=== PATIENT | female | born 1985 | race Caucasian/White ===

== ENCOUNTER 2018-01-26 15:31 | Emergency (ER) | payer MEDICAID ==
[~2018-01-26 15:31] MED LIST: ALBU8.5H8 IH; ALPR-624 PO; CYCL-1 PO; GUAI120015 PO; IBUP-1984 PO; NAPR-1154 PO; NITR100C6 PO; ONDA4TAB6 PO; PANT20TA3 PO; PSEU-259 PO
== END 2018-01-26 20:43 | disposition left against medical advice (07) ==
LOC: ER 15:31
DX: Z76.0 Encounter for issue of repeat prescription (principal); Z53.21 Procedure and treatment not carried out due to patient leaving prior to being seen by health care provider

== ENCOUNTER 2018-09-10 11:21 | Emergency (ER) | payer MEDICAID ==
[~2018-09-10] VITALS: Ht 154.9 cm; Wt 41.8 kg
[2018-09-10] MEDS ORDERED: amoxicillin 250mg capsule PO ONE (12:45)
[2018-09-10] MEDS ORDERED: AMOX500C2 PO (12:45)
[2018-09-10] MEDS ORDERED: HYDROcodone/acetaminophen 5mg/325mg tablet PO ONE (12:45)
[2018-09-10] MEDS ORDERED: aspirin 325mg tablet PO ONE (12:45)
[2018-09-10] MEDS ORDERED: acetaminophen 325mg tablet PO ONE (12:45)
[2018-09-10 13:03] VITALS: BP 148/76
== END 2018-09-10 13:06 | disposition home or self-care (01) ==
LOC: ER 11:21
DX: K08.89 Other specified disorders of teeth and supporting structures (principal); G89.29 Other chronic pain; Z90.49 Acquired absence of other specified parts of digestive tract; Z90.710 Acquired absence of both cervix and uterus; Z98.51 Tubal ligation status; Z88.8 Allergy status to other drugs, medicaments and biological substances; Z79.2 Long term (current) use of antibiotics; Z79.899 Other long term (current) drug therapy
CPT/HCPCS: 99284

== ENCOUNTER 2021-05-30 11:43 | Emergency (ER) | payer MEDICAID ==
[~2021-05-30] VITALS: Ht 154.9 cm; Wt 84.0 kg
[~2021-05-30 11:43] MED LIST changes: +ALBU8.5H17 IH; -ALBU8.5H8 IH; +PANT20TA18 PO; -PANT20TA3 PO
[2021-05-30] MEDS ORDERED: ketorolac tromethamine 15mg/ml inj. IM ONE (13:05)
[2021-05-30] MEDS ORDERED: acetaminophen 325mg tablet PO ONE (13:05)
[2021-05-30] MEDS ORDERED: LIDOcaine 1% W/epiNEPHrine 1:200,000 10ml vial IJ ONE (13:05)
[2021-05-30] MEDS ORDERED: SULF1TAB45 PO (13:16)
[2021-05-30 15:15] VITALS: BP 140/65
== END 2021-05-30 15:17 | disposition home or self-care (01) ==
LOC: ER 11:43
DX: L02.415 Cutaneous abscess of right lower limb (principal); F41.9 Anxiety disorder, unspecified; Z87.440 Personal history of urinary (tract) infections; G89.29 Other chronic pain; M54.9 Dorsalgia, unspecified; Z88.8 Allergy status to other drugs, medicaments and biological substances
CPT/HCPCS: 10060; 96372; 99283; J1885

== ENCOUNTER 2022-03-04 11:46 | Emergency (ER) | payer MEDICAID ==
[~2022-03-04] VITALS: Ht 154.9 cm; Wt 41.8 kg
[2022-03-04] MEDS ORDERED: methylPREDNISolone sod succ 125mg/2ml vial IV ONE (12:05)
[2022-03-04] MEDS ORDERED: ondansetron/PF 4mg/2ml inj IV ONE (12:05)
[2022-03-04] MEDS ORDERED: morphine 4 MG/ML inj SYRINge IV ONE ×2 (12:05→14:45)
[2022-03-04] MEDS ORDERED: clindamycin 600mg/D5W 50ml 50 ML IV ONE (12:05)
[2022-03-04] MEDS ORDERED: iohexol 300 MG/1 ML 50ml polymer ONE (12:47)
[2022-03-04] MEDS ORDERED: IOHEXOL 300 MG/ML 30ML INFUS..BTL IV ONE (12:48)
[2022-03-04 12:54] LABS: BASOPHILS % (AUTO) 0.2 % (0-1); EOSINOPHILS # (AUTO) 0.1 X10'3 (0-0.9); EOSINOPHILS % (AUTO) 0.4 % (0-6); HEMATOCRIT 46.7 % (35.0-45.0); HEMOGLOBIN 15.8 g/dl (12.0-16.0); LYMPHOCYTES # (AUTO) 1.6 X10'3 (1.1-4.8); LYMPHOCYTES % (AUTO) 10.7 % (21-51); MEAN CORPUSCULAR HEMOGLOBIN 28.5 PG (27.0-31.0); MEAN CORPUSCULAR HGB CONC 33.8 g/dL (33.0-36.5); MEAN CORPUSCULAR VOLUME 84.4 FL (78-98); MEAN PLATELET VOLUME 6.6 FL (7.4-10.4); MONOCYTES # (AUTO) 1.5 X10'3 (0-0.9); MONOCYTES % (AUTO) 9.9 % (2-12); NEUTROPHILS # (AUTO) 11.8 X10'3 (1.8-7.7); NEUTROPHILS % (AUTO) 78.8 % (42-75); PLATELET COUNT 448 X10'3 (140-440); RED BLOOD COUNT 5.54 X10'6 (4.20-5.60); RED CELL DISTRIBUTION WIDTH 13.7 % (11.5-14.5)
[2022-03-04] MEDS ORDERED: normal saline 1000ml 1,000 ML IVB ONE (13:00)
[2022-03-04 13:10] LABS: ALANINE AMINOTRANSFERASE 202 U/L (12-78); ALBUMIN 3.4 G/DL (3.4-5.0); ALBUMIN/GLOBULIN RATIO 0.7 (1.1-1.5); ALKALINE PHOSPHATASE 136 IU/L (46-116); ANION GAP 9 (8-16); ASPARTATE AMINO TRANSFERASE 60 U/L (10-37); BILIRUBIN,TOTAL 1.3 MG/DL (0.1-1.0); BLOOD UREA NITROGEN 10 MG/DL (7-18); BUN/CREATININE RATIO 14.1 (6.6-38.0); CALCIUM 8.8 MG/DL (8.5-10.1); CHLORIDE 99 MMOL/L (99-107); CREATININE 0.71 MG/DL (0.40-0.90); GLUCOSE 110 MG/DL (70-104); SODIUM 134 MMOL/L (135-145); TOTAL CARBON DIOXIDE 25.9 MMOL/L (24-32); TOTAL PROTEIN 8.3 G/DL (6.4-8.2); eGFR > 90 ML/MIN
[2022-03-04] MEDS ORDERED: LORazepam 2 mg/ml vial IV ONE (14:45)
[2022-03-04] MEDS ORDERED: vancomycin/NS 1 GM ADD-VANTAGE 250 ML IV ONE (14:50)
[2022-03-04] MEDS ORDERED: clindamycin 300mg/D5W 50mL 50 ML IV ONE (20:40)
[2022-03-05] MEDS ORDERED: normal saline 1000ml 1,000 ML IV ONE (00:05)
[2022-03-05] MEDS ORDERED: morphine 4 MG/ML inj SYRINge IV ONE ×3 (03:30→14:15)
[2022-03-05] MEDS ORDERED: clindamycin 600mg/D5W 50ml 50 ML IV ONE ×2 (04:05→22:50)
--- NOTE | 2022-03-05 08:44 | NUR ---
pt is requesting for pain meds .as per dr mari he will order pain meds.
[2022-03-05] MEDS ORDERED: clindamycin 600mg/D5W 50ml 50 ML IV SCH ×2 (10:00→16:00)
--- NOTE | 2022-03-05 10:25 | NUR ---
waiting for clinidamycin from pharmacy.
--- NOTE | 2022-03-05 12:33 | NUR ---
PT IS IN PAIN BUT DOES NOT WANT TO TAKE ANY PAIN MEDS AT THIS TIME ,PT STTAED WAIT UNTILL IT GETS WORSE.
[2022-03-05] MEDS ORDERED: ketorolac trometh. 30mg/ml inj. IV ONE (16:45)
[2022-03-05] MEDS ORDERED: acetaminophen 325mg tablet PO ONE ×2 (16:45→23:10)
[2022-03-05] MEDS ORDERED: HYDROcodone/acetaminophen 5mg/325mg tablet PO ONE ×2 (16:45→23:10)
[2022-03-05] MEDS ORDERED: methylPREDNISolone sod succ 125mg/2ml vial IV ONE (23:10)
--- NOTE | 2022-03-06 07:25 | NUR ---
Requested routine med orders and PRN pain med to ED MD Thompson.
[2022-03-06] MEDS ORDERED: dexamethasone 4mg/ml inj IV SCH (08:00)
[2022-03-06] MEDS ORDERED: dexamethasone inj 10 MG in dextrose 5%-water 100 ML IV SCH (08:00)
[2022-03-06] MEDS ORDERED: DEXAMETHASONE IV SCH (08:00)
[2022-03-06] MEDS ORDERED: NORMAL SALINE IV SCH (08:00)
[2022-03-06] MEDS: clindamycin 600mg/D5W 50ml 50 ML IV SCH ×2 (08:15→14:15)
[2022-03-06] MEDS: HYDROcodone/acetaminophen 10/325mg tab PO PRN ×2 (08:16→14:15)
[2022-03-06] MEDS ORDERED: LORazepam 1 MG tablet PO ONE (09:15)
--- NOTE | 2022-03-06 09:45 | NUR ---
Received VO from Dr. Thompson for diet order and med ativan per pt request.
--- NOTE | 2022-03-06 10:42 | NUR ---
@ AROUND 10AM [facility] ACCEPTED PT STILL LOOKING FOR A BED
--- NOTE | 2022-03-06 10:42 | NUR ---
Pt updated on hospital status and awaiting bed opening.
[2022-03-06 14:21] VITALS: BP 105/73
[2022-03-06] MEDS ORDERED: morphine 2 MG/ML inj. syringe IV PRN (15:20)
--- NOTE | 2022-03-06 15:21 | NUR ---
PT STILL WITH SIGNIFICANT PAIN AND HAS RECEIVED NORCO10/325MG. REPORTED PT WITHOUT PAIN RELIEF TO ED MD LANDIN, RECEIVED VO FOR MORPHINE 2 MG IV Q 4 HOURS PRN BREAK THROUGH PAIN.
== END 2022-03-06 18:52 | disposition short-term general hospital (02) ==
LOC: ER 11:47
DX: K04.7 Periapical abscess without sinus (principal); Z20.822 Contact with and (suspected) exposure to COVID-19; K08.89 Other specified disorders of teeth and supporting structures; M27.2 Inflammatory conditions of jaws; R13.10 Dysphagia, unspecified; G89.29 Other chronic pain; F41.9 Anxiety disorder, unspecified; Z87.442 Personal history of urinary calculi; Z87.440 Personal history of urinary (tract) infections; Z90.49 Acquired absence of other specified parts of digestive tract; Z90.710 Acquired absence of both cervix and uterus; Z98.51 Tubal ligation status; Z72.89 Other problems related to lifestyle; Z88.8 Allergy status to other drugs, medicaments and biological substances; Z79.899 Other long term (current) drug therapy
CPT/HCPCS: 36415; 70491; 80053; 85025; 87635; 96365; 96366; 96367; 96375; 96376; 99285; C9803; J1100; J1885; J2060; J2270; J2405; J2930; J3370; J3490; J7030; Q9967

== ENCOUNTER 2024-03-25 15:51 | Emergency (ER) | payer MEDICAID ==
[~2024-03-25] VITALS: Ht 154.9 cm; Wt 38.6 kg
[2024-03-25 15:51] VITALS: BP 118/72; PULSE 104; RESP 16; TEMP 98; O2SAT 99
[2024-03-25] MEDS: TETanus/Pertussis (Acell)/Diphther VAC/PF (Tdap-Adult) 0.5ml syringe IMVAC ONE (16:22)
[2024-03-25] MEDS ORDERED: AMOX-117 PO (19:09)
== END 2024-03-25 18:55 | disposition left against medical advice (07) ==
LOC: ER 15:51
DX: S51.831A Puncture wound without foreign body of right forearm, initial encounter (principal); Z88.8 Allergy status to other drugs, medicaments and biological substances; Z79.899 Other long term (current) drug therapy; Z90.49 Acquired absence of other specified parts of digestive tract; Z98.890 Other specified postprocedural states; Z98.51 Tubal ligation status; W54.0XXA Bitten by dog, initial encounter; Y93.89 Activity, other specified; Y92.89 Other specified places as the place of occurrence of the external cause; Y99.8 Other external cause status
CPT/HCPCS: 73090; 90471; 90715; 99283; J7030; A6449